=== PATIENT | female | born 1965 | race Caucasian/White ===

== ENCOUNTER 2016-11-11 07:09 | Day surgery (SDC) | payer MEDICAID ==
--- NOTE | 2016-11-11 07:12 | PDANEPAE ---
ANE History of Present Illness 51 yo female for colonoscopy. ANE Past Medical History - Cardiovascular History Hx Hypertension: No Hx Arrhythmias: No Hx Chest Pain: No Hx Coronary Artery / Peripheral Vascular Disease: No Hx CHF / Valvular Disease: No Hx Palpitations: No - Pulmonary History Hx COPD: No Hx Asthma/Reactive Airway Disease: No Hx Recent Upper Respiratory Infection: No Hx Oxygen in Use at Home: No Hx Sleep Apnea: No Sleep Apnea Screening Result - Last Documented: Negative - Neurologic History Hx Cerebrovascular Accident: No Hx Seizures: No Hx Dementia: No - Endocrine History Hx Diabetes: No - Renal History Hx Renal Disorders: No - Liver History Hx Hepatic Disorders: No - Neurological & Psychiatric Hx Hx Neurological and Psychiatric Disorders: Yes Neurological / Psychiatric History Comment: DEPRESSION - Cancer History Hx Cancer: Yes Cancer History Comment: X2 SQUAMOUS - Congenital Disorder History Hx Congenital Disorders: No - GI History GERD: moderate Hx Gastrointestinal Disorders: No Gastrointestinal History Comment: ED visit with GI-related chest pain in 2016 - Other Health History Other Health History: NEG - Chronic Pain History Chronic Pain: Yes (ARTHRITIS MILD) - Surgical History Prior Surgeries: ACL R KNEE. TONSILLECTOMY ANE Review of Systems Review of systems is: negative Review of Systems: - Exercise capacity METS (RN): 4 METS - Systems Constitutional: Reports: no symptoms Cardiac: Reports: no symptoms Respiratory: Reports: no symptoms ANE Patient History - Allergies Allergies/Adverse Reactions: bupropion HCl [From Wellbutrin] Allergy (Verified 10/29/16 14:03) codeine [Codeine] Allergy (Verified 04/24/12 10:55) Sulfa (Sulfonamide Antibiotics) Allergy (Verified 04/24/12 10:55) - Home Medications Home medications: home medication list seen and reviewed Home Medications: Multivitamins [Tab-A-Mark] 1 each PO DAILY 04/24/12 [Last Taken 04/23/12] [place]-3 Fatty Acids [Fish Oil 1000 mg (OTC)] 3,000 mg PO DAILY 04/24/12 [Last Taken 04/23/12] lamoTRIgine [LamICTAL 100 MG (RX)] 200 mg PO HS 04/24/12 [Last Taken 04/23/12] Acyclovir 10/29/16 [Last Taken Unknown] Wellbutrin Sr 10/29/16 [Last Taken Unknown] - NPO status NPO Status: no food or drink >8 hours - Anes Hx Anes Hx: no prior problems - Smoking Hx Smoking Status: Former smoker Marijuana use: No - Alcohol Use Alcohol Use: Occasionally (5/week) - Family Anes Hx Family Anes Hx: none Family Hx Anesthesia Complications: NEG ANE Labs/Vital Signs - Vital Signs Vital Signs: reviewed preoperatively; see RN documention for details Height: 160.02 cm Weight: 51.71 kg ANE Physical Exam - Airway Neck exam: FROM Mallampati Score: Class 2 - Pulmonary Pulmonary: clear to auscultation - Cardiovascular Cardiovascular: regular rate and rhythym - ASA Status ASA Status: II ANE Anesthesia Plan Anesthesia Plan: GA with mask Total IV Anesthesia: Yes
[2016-11-11] MEDS ORDERED: LIDOCAINE 1% 2 ML INJ ONE (07:31)
[2016-11-11] MEDS ORDERED: LIDOCAINE 1% 2 ML INJ ID PRN (07:38)
[2016-11-11] MEDS ORDERED: LR 1,000 ML IV ONE (07:38)
--- NOTE | 2016-11-11 07:44 | PDGENHP ---
History & Physical Chief Complaint: Screening colonoscopy Relevant Physical Exam: GEN: NAD. Cardiac: RRR. Lungs: CTA B. Abd: Soft, nt, nd
[2016-11-11] MEDS ORDERED: LIDOCAINE 2% 5 ML SDV ONE (07:56)
[2016-11-11] MEDS ORDERED: PROPOFOL 200 MG/20 ML VIAL ONE ×2 (07:56→08:26)
[2016-11-11 08:02] VITALS: PULSE 73
[2016-11-11] MEDS ORDERED: ACETAMINOPHEN 500 MG TAB PO PRN (08:14)
[2016-11-11] MEDS ORDERED: NALOXONE HCL 0.4 MG/ML INJ IVP PRN (08:14)
[2016-11-11] MEDS ORDERED: ALBUTEROL 3 ML DEYVIAL IH PRN (08:14)
[2016-11-11] MEDS ORDERED: LR 500 ML IV PRN (08:14)
--- NOTE | 2016-11-11 08:33 | GIREPORT ---
On License Of [facility] Surgical Services - Endoscopy Department Patient Name: Ginny Arndt Procedure Date: 11/11/2016 7:49 AM Patient Type: Outpatient Attending / CHUN Physician: Henry Arana MD Procedure: Colonoscopy Indications: Screening for colorectal malignant neoplasm Providers: Henry Arana MD Medicines: Monitored Anesthesia Care Complications: No immediate complications. Description of Procedure: After obtaining informed consent, the scope was passed under direct vis ion. Throughout the procedure, the patient's blood pressure, pulse, and oxyg en saturations were monitored continuously. The was introduced through the anus and advanced to the terminal ileum, with identification of the appendic eal orifice and IC valve. The colonoscopy was performed without difficulty. The patient tolerated the procedure well. The quality of the bowel preparat ion was good. Findings: The perianal and digital rectal examinations were normal. The terminal ileum appeared normal. A 4 mm polyp was found in the sigmoid colon. The polyp was sessile. The polyp was removed with a cold snare. Resection and retrieval were complete. Verification of patient identification for the da thornton was done by the physician and nurse using the patient's name and date. Estimated blood los s was minimal. The retroflexed view of the distal rectum and anal verge was normal and showed no anal or rectal abnormalities. Estimated Blood Loss: Estimated blood loss: none. Post Op Diagnosis: - The examined portion of the ileum was normal. - One 4 mm polyp in the sigmoid colon, removed with a cold snare. Resected and retrieved. - The distal rectum and anal verge are normal on retroflexion view. Recommendation: - Discharge patient to home (with escort). - Resume previous diet. - Continue present medications. - Repeat colonoscopy in 5-10 years for surveillance based on pathology results. If the polyp is found to be adenomatous a repeat colonoscopy in 5 years is recommended. Otherwise if the polyp is foun d to be hyperplastic, a repeat colonoscopy in 10 years is recommended. - Your pathology results are available within 10 days. - Thank you for allowing me to participate in the care of your patient. Attending Participation: I personally performed the entire procedure. Henry Arana MD Henry Arana MD 11/11/2016 8:32:25 AM Number of Addenda: 0 Note Initiated On: 11/11/2016 7:49 AM Total Procedure Duration Time 0 hours 14 minutes 30 seconds [email or web address]
--- NOTE | 2016-11-11 08:39 | POSTANESTH ---
Post Anesthetic Evaluation Cardiovascular Status: Normal, Stable Respiratory Status: Normal, Stable Level of Consciousness/Mental Status: Can Participate in Eval, Mildly Sleepy, Arousable Pain Control: Adequate, Prn Tx Ordered Nausea/Vomiting Control: Adequate, Prn Tx Ordered Complications Possibly Related to Anesthesia: None Noted
[2016-11-11 08:44] VITALS: TEMP 97.5
[2016-11-11 09:08] VITALS: RESP 16
[2016-11-11 09:46] VITALS: BP 105/61; O2SAT 95
== END 2016-11-11 09:49 | disposition home or self-care (01) ==
LOC: FSGY 07:09
PROVIDERS: ATTEND Internal Medicine Gastroenterology
PROC: 0DBE8ZX Excision of Large Intestine, Via Natural or Artificial Opening Endoscopic, Diagnostic (ICD-10-PCS; principal; 2016-11-11 09:00)
DX: Z12.11 Encounter for screening for malignant neoplasm of colon (principal); D12.5 Benign neoplasm of sigmoid colon; F32.9 Major depressive disorder, single episode, unspecified; Z88.2 Allergy status to sulfonamides
CPT/HCPCS: J2704

== ENCOUNTER → 2016-12-31 | Outpatient (CLI) | payer MEDICAID | LOC: FIMAGING 12:14 | DX: Z12.31 Encounter for screening mammogram for malignant neoplasm of breast (principal) | CPT/HCPCS: G0202 ==